=== PATIENT | female | born 1965 | race Native Hawaiian/Other Pacific Islander ===

== ENCOUNTER 2019-05-31 08:21 | Outpatient (CLI) | payer BC, OTHER ==
[~2019-05-31 08:21] MED LIST: ALPR0.5T24 PO; ANAS1TAB PO; PROZAC10 MG PO
== END 2019-05-31 23:34 | disposition home or self-care (01) ==
LOC: CT 08:21
DX: R10.30 Lower abdominal pain, unspecified (principal); K85.90 Acute pancreatitis without necrosis or infection, unspecified
CPT/HCPCS: 36415; 82565; 84520; Q9963

== ENCOUNTER 2020-01-26 07:20 | Outpatient (CLI) | payer BC, OTHER | END 2020-01-26 18:55 | disposition home or self-care (01) | LOC: RAD 07:20 | DX: M25.561 Pain in right knee (principal); M54.5 Low back pain; W19.XXXA Unspecified fall, initial encounter ==